=== PATIENT | male | born 1995 | race Caucasian/White ===

== ENCOUNTER 2024-12-24 06:58 | Emergency (ER) | payer OTHER | END 2024-12-24 07:33 | disposition home or self-care (01) | LOC: JD.ED 06:58 | DX: S60.211A Contusion of right wrist, initial encounter (principal); X50.1XXA Overexertion from prolonged static or awkward postures, initial encounter; Y93.89 Activity, other specified | CPT/HCPCS: 73110-26-RT; 73110-RT; 99283 ==